=== PATIENT | female | born 1980 | race African-American/Black ===

== ENCOUNTER 2018-11-02 10:57 | Emergency (ER) | payer OTHER ==
[~2018-11-02] VITALS: Ht 170.2 cm; Wt 80.3 kg
[2018-11-02 11:11] VITALS: Ht 170.2 cm; Wt 80.3 kg
[2018-11-02 12:05] VITALS: BP 120/77
== END 2018-11-02 12:05 | disposition home or self-care (01) ==
LOC: ED 10:57
DX: M54.42 Lumbago with sciatica, left side (principal); Z88.2 Allergy status to sulfonamides
CPT/HCPCS: J1885

== ENCOUNTER 2019-01-07 05:31 | Emergency (ER) | payer OTHER ==
[~2019-01-07] VITALS: Ht 170.2 cm; Wt 78.1 kg
[2019-01-07 05:39] VITALS: Ht 170.2 cm; Wt 78.1 kg
[2019-01-07 06:31] VITALS: BP 133/93
== END 2019-01-07 06:31 | disposition home or self-care (01) ==
LOC: ED 05:31
DX: N39.0 Urinary tract infection, site not specified (principal); Z88.2 Allergy status to sulfonamides
CPT/HCPCS: 87491; 87591

== ENCOUNTER 2019-03-25 06:06 | Emergency (ER) | payer OTHER ==
[~2019-03-25] VITALS: Ht 170.2 cm; Wt 77.8 kg
[2019-03-25 06:15] VITALS: Ht 170.2 cm; Wt 77.8 kg
[2019-03-25 06:36] VITALS: BP 141/97
== END 2019-03-25 06:36 | disposition home or self-care (01) ==
LOC: ED 06:06
DX: J02.9 Acute pharyngitis, unspecified (principal); J98.01 Acute bronchospasm; F17.210 Nicotine dependence, cigarettes, uncomplicated; Z88.2 Allergy status to sulfonamides
CPT/HCPCS: 99406

== ENCOUNTER 2019-06-12 01:49 | Emergency (ER) | payer OTHER ==
[~2019-06-12] VITALS: Ht 170.2 cm; Wt 78.6 kg
[2019-06-12 02:02] VITALS: BP 133/97
== END 2019-06-12 06:10 | disposition left against medical advice (07) ==
LOC: ED 01:49
DX: Z53.21 Procedure and treatment not carried out due to patient leaving prior to being seen by health care provider (principal)

== ENCOUNTER 2019-11-01 23:25 | Emergency (ER) | payer OTHER ==
[~2019-11-01] VITALS: Ht 170.2 cm; Wt 83.5 kg
[2019-11-01 23:33] VITALS: Ht 170.2 cm; Wt 83.5 kg
[2019-11-02 01:14] VITALS: BP 128/74
== END 2019-11-02 01:14 | disposition home or self-care (01) ==
LOC: ED 23:25
DX: H60.501 Unspecified acute noninfective otitis externa, right ear (principal); I10 Essential (primary) hypertension; Z88.2 Allergy status to sulfonamides

== ENCOUNTER 2020-01-23 21:58 | Emergency (ER) | payer OTHER ==
[~2020-01-23] VITALS: Ht 170.2 cm; Wt 83.9 kg
[2020-01-23 22:14] VITALS: Ht 170.2 cm; Wt 83.9 kg
[2020-01-23 23:37] VITALS: BP 135/94
== END 2020-01-23 23:37 | disposition home or self-care (01) ==
LOC: ED 21:58
DX: N39.0 Urinary tract infection, site not specified (principal); M54.5 Low back pain; I10 Essential (primary) hypertension; Z88.1 Allergy status to other antibiotic agents; Z88.2 Allergy status to sulfonamides